=== PATIENT | female | born 1990 | race Caucasian/White ===

== ENCOUNTER 2018-06-20 15:14 | Outpatient (CLI) | payer SELFPAY ==
[~2018-06-20] VITALS: Ht 160 cm; Wt 60.5 kg
--- NOTE | 2018-06-20 16:51 | TRIAGE ---
OB Triage Datetime Report Generated by CPN: 06/20/2018 16:50 Datetime: 06/20/2018 15:51 Assessment Type: Triage Maternal Assessment Level of Consciousness: Fully Conscious DTR's/Clonus: DTRs 2+; No Clonus Headache: Denies Blurred Vision: No Respiratory Effort: Unlabored; Regular Rhythm; Equal Expansion Breath Sounds, Left: Clear and Equal Breath Sounds, Right: Clear and Equal Nausea/Vomiting: Denies RUQ Epigastric Pain: Denies Lower Extremities Edema: None Degree: None Upper Extremities Edema: None Degree: None Facial Edema: None Fall Risk Assessment History of Falling: (0) No Secondary Diagnosis: (0) No Ambulatory Aid: (0) Bedrest/Nurse Assist IV Therapy: (0) No Gait: (0) Normal/Bedrest/Immobile Mental Status: (0) Oriented to Own Ability Fall Score: 0 Fall Risk Score Definition: No Risk: No action required Datetime: 06/20/2018 15:49 Time of Arrival: 06/20/2018 15:03 EGA: 34.4 Arrived By: Ambulatory Arrived From: Home Chief Complaint: PT. HERE STATES SHE HAS NO PNC IN THIS COUNTRY Movement: Present Contractions: Denies/Absent Rupture of Membranes: Denies Vaginal Bleeding: None Vaginal Discharge: Denies Recent Sexual Intercouse: Denies Abdominal Trauma: Not Applicable Patient Complaints: None Time Provider Notified: 06/20/2018 15:53 Provider Notified: HADADIAN Initial Plan: NST/KATELIN/EFW Datetime: 06/20/2018 15:44 Labor Evaluation Monitor Mode: External Heart Rate Monitor Mode: External US
[2018-06-20 16:54] VITALS: Ht 160 cm; Wt 60.5 kg
[2018-06-20 16:56] VITALS: BP 111/60; PULSE 76; RESP 18
--- NOTE | 2018-06-20 17:03 | PN ---
Triage Information Date/Time Reason for visit: The patient recently moved to [facility], came to hospital for checking the baby Weeks of Gestation 34 weeks and 4 days by LMP and first trimester ultrasound which done [place] country /Para Diabetes: none Diabetes management: diet controlled Objective Vital Signs Date Temp Pulse Resp B/P (MAP) Pulse Ox O2 O2 Flow FiO2 Time Delivery Rate 06/20/18 98.0 76 18 111/60 Room Air 16:56 (77) Heart Rate: 140's Contractions: None Results/Medications Medications There is a twin viable intrauterine gestation. There is a breech presentation for both twins. The single placenta is posterior. There is no evidence for an abruption or placenta previa. Measurements were made in order to determine age. The results are as follows: TWIN A BPD = 6.52 cm HC = 24.17 cm AC = 22.64 cm FL = 5.12 cm EFW = 1019 g HR= 138 bpm TWIN B BPD = 5.92 cm HC = 22.78 cm AC = 22.34 cm FL = 4.82 cm EFW = 905 g HR= 142 bpm IMPRESSION: Single viable with TWIN A gestational age of approximately 26 weeks 5 days and TWIN B gestational age of approximately 25 weeks and 3 day(s) based on ultrasound measurements. The estimated date of delivery is 09/21/2018 - 09/30/2018. Disposition: Discharge Assessment/Plan 28 years old 2 para 1001 with single intrauterine at 34 weeks and 4 days with a RADHA of 07/28/2018 recently moved to [facility]. She presented to triage for checking the baby. She states good movement. She denies nausea, vomiting, shortness of breath, chest pain, headache, visual changes, vaginal bleeding or LOF. -FHR: No sign of metabolic acidosis- Category I -Contractions: None -Ultrasound performed: EFW 2231 g, amniotic fluid index 14.5 -Contractions: None -Symptoms and sign of labor, preeclampsia, kick count discussed wi th patient, she voiced understanding. All of her questions answered. -Patient was discharged home in stable condition with the appropriate discharge instructions provided. The address of few clinics that are close to her house given. I would like patient to have close follow-up with in clinic in 1-2 days or return to triage for worsening symptoms or any other urgent concerns. DIEGO BECERRA Jun 20, 2018 17:03
== END 2018-06-20 17:05 | disposition home or self-care (01) ==
LOC: OBT 15:14 → L-D 15:16 → OBT 17:05
PROVIDERS: ATTEND Obstetrics & Gynecology
DX: O30.043 Twin pregnancy, dichorionic/diamniotic, third trimester (principal); Z3A.34 34 weeks gestation of pregnancy
CPT/HCPCS: 76815; G0463

== ENCOUNTER 2018-07-17 17:21 | Outpatient (CLI) | payer MEDICAID ==
[~2018-07-17] VITALS: Ht 160 cm; Wt 60.9 kg
[2018-07-17 17:41] VITALS: Ht 160 cm; Wt 60.9 kg
[2018-07-17 17:42] VITALS: BP 106/57
[2018-07-17] MEDS ORDERED: PREN1TAB71 PO (17:46)
--- NOTE | 2018-07-17 19:54 | PN ---
Triage Information Date/Time Reason for visit: NST and biophysical profile for history of stillbirth at 40 weeks Weeks of Gestation 37 weeks and 5 days /Para 3 para 2000 Diabetes: none Hypertention: none Objective Vital Signs Date Temp Pulse Resp B/P (MAP) Pulse Ox O2 O2 Flow FiO2 Time Delivery Rate 07/17/18 97.6 106/57 17:42 (73) Heart Rate: 140's Contractions: None Disposition: Discharge Assessment/Plan 28 years old 3 para 2000 with history of stillbirth at 40 weeks in first at 37 weeks and 5 days referred to hospital for NST and biophysical profile. She states good movement. She denies nausea, vomiting, shortness of breath, chest pain, headache, visual changes, vaginal bleeding or LOF. -FHR: No sign of metabolic acidosis- Category I -Contractions: Occasional -Ultrasound performed: KATELIN 19.7. Biophysical profile 8 out of 8 -Symptoms and sign of labor, preeclampsia, kick count discussed with patient, she voiced understanding. All of her questions answered. -Patient was discharged home in stable condition with the appropriate discharge instructions provided. I would like patient to have close follow-up with her primary physician or outpatient clinic in 1-2 days or return to triage for worsening symptoms or any other urgent concerns. DIEGO BECERRA Jul 17, 2018 19:54
--- NOTE | 2018-07-17 20:11 | TRIAGE ---
OB Triage Datetime Report Generated by CPN: 07/17/2018 20:11 Datetime: 07/17/2018 19:33 Labor Evaluation Frequency: irregular Monitor Mode: External Duration (sec)2399: 40-90 Pattern: Normal: <= 5 Contractions in 10 Minutes Heart Rate FHR Baseline Rate: 135 Monitor Mode: External US Variability: Moderate 6-25 bpm Accelerations: 15X15 Decelerations: None Category: Category I Datetime: 07/17/2018 19:11 Stage of : OB Triage Assessment Type: Triage Maternal Assessment Level of Consciousness: Fully Conscious DTR's/Clonus: DTRs 2+; No Clonus Headache: Denies Blurred Vision: No Respiratory Effort: Unlabored; Regular Rhythm; Equal Expansion Breath Sounds, Left: Clear and Equal Breath Sounds, Right: Clear and Equal Nausea/Vomiting: Denies RUQ Epigastric Pain: Denies Lower Extremities Edema: None Degree: None Upper Extremities Edema: None Degree: None Facial Edema: None Temperature Route: Oral Fall Risk Assessment History of Falling: (0) No Secondary Diagnosis: (0) No Ambulatory Aid: (0) Bedrest/Nurse Assist IV Therapy: (0) No Gait: (0) Normal/Bedrest/Immobile Mental Status: (0) Oriented to Own Ability Fall Score: 0 Fall Risk Score Definition: No Risk: No action required Labor Evaluation Frequency: 2-5 Monitor Mode: External Duration (sec)2399: 40-80 Pattern: Normal: <= 5 Contractions in 10 Minutes Heart Rate FHR Baseline Rate: 135 Monitor Mode: External US Variability: Moderate 6-25 bpm Accelerations: 15X15 Decelerations: None Category: Category I Comments: Patient states she feels active movement. Pain Assessment Pain Scale: 0 Pain Presence: None/Denies Pain Type: N/A Datetime: 07/17/2018 18:19 Stage of : OB Triage Labor Evaluation Frequency: 0 Monitor Mode: External Pattern: Normal: <= 5 Contractions in 10 Minutes Resting Tone [place]: Relaxed Heart Rate FHR Baseline Rate: 135 Variability: Moderate 6-25 bpm Accelerations: 15X15 Decelerations: None Category: Category I Datetime: 07/17/2018 17:51 Stage of : OB Triage Assessment Type: Triage Maternal Assessment Level of Consciousness: Fully Conscious DTR's/Clonus: DTRs 2+; No Clonus Headache: Denies Blurred Vision: No Respiratory Effort: Unlabored; Regular Rhythm; Equal Expansion Breath Sounds, Left: Clear and Equal Breath Sounds, Right: Clear and Equal Nausea/Vomiting: Denies RUQ Epigastric Pain: Denies Lower Extremities Edema: None Degree: None Upper Extremities Edema: None Degree: None Facial Edema: None Temperature Route: Oral Fall Risk Assessment History of Falling: (0) No Secondary Diagnosis: (0) No Ambulatory Aid: (0) Bedrest/Nurse Assist IV Therapy: (0) No Gait: (0) Normal/Bedrest/Immobile Mental Status: (0) Oriented to Own Ability Fall Score: 0 Fall Risk Score Definition: No Risk: No action required Monitor Mode: External (Annotations: INITIAL PLACEMENT ) Monitor Mode: External US (Annotations: INITIAL PLACEMENT ) Pain Assessment Pain Scale: 0 Pain Presence: None/Denies Pain Type: N/A Datetime: 07/17/2018 17:48 Time of Arrival: 07/17/2018 17:12 EGA: 38.3 Arrived By: Ambulatory Arrived From: Dr. Valerio Chief Complaint: SENT FROM CLINIC FOR NST BPP HX OF STILLBIRTH Movement: Present Contractions: Denies/Absent Rupture of Membranes: Denies Vaginal Bleeding: None Vaginal Discharge: Denies Recent Sexual Intercouse: Denies Abdominal Trauma: Not Applicable Patient Complaints: Other Initial Plan: NST, BPP Datetime: 06/20/2018 16:58 Stage of : OB Triage Maternal Assessment Level of Consciousness: Fully Conscious Labor Evaluation Frequency: NONE Monitor Mode: External Resting Tone [place]: Relaxed Heart Rate FHR Baseline Rate: 125 Monitor Mode: External US Variability: Moderate 6-25 bpm Accelerations: 15X15 Decelerations: None Category: Category I Pain Assessment Pain Scale: 0 Pain Goal: 3 Vaginal Exam Membrane Status: Intact Vaginal Bleeding: None Datetime: 06/20/2018 15:51 Fall Score: 0 Fall Risk Score Definition: No Risk: No action required Datetime: 06/20/2018 15:49 EGA: 34.4
== END 2018-07-17 20:00 | disposition home or self-care (01) ==
LOC: OBT 17:21 → L-D 17:22 → OBT 20:00
PROVIDERS: ATTEND Obstetrics & Gynecology
DX: O62.9 Abnormality of forces of labor, unspecified (principal); Z3A.37 37 weeks gestation of pregnancy
CPT/HCPCS: 76818; Z7500; G0463

== ENCOUNTER 2018-07-24 18:15 | Inpatient (IN) | payer MEDICAID ==
[~2018-07-24] VITALS: Ht 160 cm; Wt 60.5 kg
[~2018-07-24 18:15] MED LIST: PREN1TAB71 PO
[2018-07-24] MEDS ORDERED: IBUPROFEN 600 MG TAB PO PRN (20:00)
[2018-07-24] MEDS ORDERED: LIDOCAINE 1% (MPF) 30 ML INJ INJ PRN (20:00)
[2018-07-24] MEDS ORDERED: BUTORPHANOL 2 MG INJ IV PRN (20:00)
[2018-07-24] MEDS ORDERED: OXYTOCIN 30 UNITS/LR 500 ML IV PRN (20:00)
[2018-07-24] MEDS ORDERED: METHYLERGONOVINE 0.2 MG INJ IM PRN (20:00)
[2018-07-24] MEDS ORDERED: OXYTOCIN 30 UNITS/LR 500 ML IV SCH (20:00)
[2018-07-24] MEDS ORDERED: MISOPROSTOL 200 MCG TAB PR PRN (20:00)
[2018-07-24] MEDS ORDERED: CARBOPROST 250 MCG INJ IM PRN (20:00)
[2018-07-24] MEDS ORDERED: AMPICILLIN 2 GM/NS (PMX) 100 ML IV ONE (20:00)
[2018-07-24 20:35] VITALS: Ht 160 cm; Wt 60.5 kg
[2018-07-24] MEDS: LACTATED RINGER'S 1,000 ML IV SCH ×2 (21:02→22:56)
[2018-07-24] MEDS: MISOPROSTOL 50 MCG CAPSULE PO SCH (21:34)
--- NOTE | 2018-07-24 22:16 | HP ---
Date/Time of Note Date/Time of Note DATE: 07/24/18 TIME: 22:11 OB - History Hx of Present Free Text/Dictation 28 years old with single intrauterine at 39 weeks and 3 days with RADHA of 07/28/2018 admitted for induction of labor due to history of stillbirth in first at 39 weeks. She states good movement. She denies nausea, vomiting, shortness of breath, chest pain, headache, visual changes, vaginal bleeding or LOF. Chief Complaint: Scheduled for induction of labor due to history of stillbirth at 39 weeks Estimated Due Date: Jul 28, 2018 : 3 Para: 2 Spontaneous : 0 Therapeutic : 0 Care: Good Care Ultrasounds: Other (Normal third trimester ultrasound. She was seen early in in [facility]) Obstetrical Complications: None Medical Complications: None Past Family/Social History * Past Medical, Surgical, Family and Obstetric Histories reviewed from chart. Blood Type: O+ Rubella: immune RPR/VDRL: Negative GBS Status: Positive HBsAG: Negative OB Admission Exam Vital Signs Vital Signs Blood pressure 116/70, pulse rate 72/minutes, respiratory rate 16/minutes, temperature 98.5 Physical Exam HEENT: WNL Heart: Rhythm Normal Lungs: Clear Abdomen: WNL Extremities: Normal Cervical Dilatation: Fingertip Effacement: 25% Station: -3 Membranes: Intact Heart Rate: 130's Accelerations: Accelerations Present Decelerations: No Decelerations Varibility: Moderate Contractions on Admission: >10 Minutes Apart Intensity: Mild Last 72 hours Lab Results CBC & BMP 07/24/18 21:23 OB Assessment/Plan Other plan: 28 years old 3 para 2000 with single intrauterine at 39 weeks and 3 days admitted for induction of labor due to history of stillbirth at 39 weeks - FHR: No sign of metabolic acidosis- Category I - Continuous EFM, toco - CBC, blood type and screen - Analgesia options with R/B/A discussed in detail with patient - Epidural per patient request - Cytotec for induction of labor per protocol - Please see the orders - O+/Rubella: Immune - GBS: Positive, ampicillin in active labor 2. Mild anemia; hemoglobin 10.4. Recommend continue vitamin and ferrous sulfate 325 mg twice daily for 3 months after delivery. Admission, procedures, expectations, risks and possible complications have been discussed in detail with the patient. Risk of vaginal delivery including but not limited to bleeding, infection, cervical laceration, placental retention, injury to fetus, blood transfusion, blood transfusion related infection, risk of anesthesia, adhesion, cervical laceration, episiotomy/laceration, possible delivery with risk of bleeding, infection, injury to other organs (bowel, bladder, ureter, vessels, nerves), injury to fetus, blood transfusion, blood transfusion related infection, risk of anesthesia, scar and hernia formation, needs for future , removal of uterus or any other indicated surgery discussed with the patient. She expressed understanding and repeats the risks. All of her questions were answered. She signed the informed consent. PHYSICIAN'S VERIFICATION OF INFORMED CONSENT The patient was counseled regarding the procedure, its indications, risks, potential complications and alternatives and any questions were answered. Consent was obtained. PLANNED PROCEDURE/TREATMENT: Vaginal delivery, episiotomy, repair of laceration possible delivery DIEGO BECERRA Jul 24, 2018 22:16
--- NOTE | 2018-07-24 22:18 | TRIAGE ---
OB Triage Datetime Report Generated by CPN: 07/24/2018 22:18 Datetime: 07/24/2018 20:58 Stage of : Labor Datetime: 07/24/2018 20:28 Assessment Type: Admission Assessment Vaginal Bleeding: None Maternal Assessment Level of Consciousness: Fully Conscious DTR's/Clonus: DTRs 2+; No Clonus Headache: Denies Blurred Vision: No Respiratory Effort: Unlabored; Regular Rhythm; Equal Expansion Breath Sounds, Left: Clear and Equal Breath Sounds, Right: Clear and Equal Nausea/Vomiting: Denies RUQ Epigastric Pain: Denies Lower Extremities Edema: None Upper Extremities Edema: None Facial Edema: None Fall Risk Assessment History of Falling: (0) No Secondary Diagnosis: (0) No Ambulatory Aid: (0) Bedrest/Nurse Assist IV Therapy: (0) No Gait: (0) Normal/Bedrest/Immobile Mental Status: (0) Oriented to Own Ability Fall Score: 0 Fall Risk Score Definition: No Risk: No action required Pain Assessment Pain Scale: 0 Pain Presence: None/Denies Pain Type: N/A Membrane Status: Intact Datetime: 07/24/2018 20:27 Time of Arrival: 07/24/2018 20:27 EGA: 39.3 Arrived By: Ambulatory Arrived From: Dr. Office Datetime: 07/24/2018 20:00 Stage of : OB Triage Labor Evaluation Frequency: IRRITABILITY Monitor Mode: External Duration (sec)2399: 30 Quality: Mild Pattern: Normal: <= 5 Contractions in 10 Minutes Resting Tone [place]: Relaxed Heart Rate FHR Baseline Rate: 135 Monitor Mode: External US Variability: Moderate 6-25 bpm Accelerations: 15X15 Decelerations: None Category: Category I Datetime: 07/24/2018 19:15 Stage of : OB Triage Maternal Assessment Level of Consciousness: Fully Conscious DTR's/Clonus: DTRs 2+; No Clonus Headache: Denies Blurred Vision: No Respiratory Effort: Unlabored; Regular Rhythm; Equal Expansion Breath Sounds, Left: Clear and Equal Breath Sounds, Right: Clear and Equal Nausea/Vomiting: Denies RUQ Epigastric Pain: Denies Lower Extremities Edema: None Degree: None Upper Extremities Edema: None Degree: None Facial Edema: None Temperature Route: Oral Fall Risk Assessment History of Falling: (0) No Secondary Diagnosis: (0) No Ambulatory Aid: (0) Bedrest/Nurse Assist IV Therapy: (0) No Gait: (0) Normal/Bedrest/Immobile Mental Status: (0) Oriented to Own Ability Fall Score: 0 Fall Risk Score Definition: No Risk: No action required Pain Assessment Pain Scale: 0 Pain Presence: None/Denies Pain Type: N/A Vaginal Exam Dilatation (cms): 1.0 Effacement (%): 50 Station: -2 Exam By: David GU Membrane Status: Intact Vaginal Bleeding: None Cervix, Consistency: Soft Datetime: 07/24/2018 19:10 Time of Arrival: 07/24/2018 18:13 EGA: 39.3 Arrived By: Ambulatory Arrived From: Home Chief Complaint: referred from office for nst/bpp, ve Movement: Present Contractions: Denies/Absent Rupture of Membranes: Denies Vaginal Bleeding: None Vaginal Discharge: Denies Recent Sexual Intercouse: Denies Abdominal Trauma: Not Applicable Patient Complaints: None Additional Patient Complaints: ID #[id number] plan of care explained, questions answered to pt satisfacti on Time Provider Notified: 07/24/2018 19:27 Provider Notified: DR. BECERRA Initial Plan: EFM, BPP, SVE, CALL OB Datetime: 07/17/2018 19:11 Fall Score: 0 Fall Risk Score Definition: No Risk: No action required Datetime: 07/17/2018 17:51 Fall Score: 0 Fall Risk Score Definition: No Risk: No action required Datetime: 07/17/2018 17:48 EGA: 38.3 Datetime: 06/20/2018 15:51 Fall Score: 0 Fall Risk Score Definition: No Risk: No action required Datetime: 06/20/2018 15:49 EGA: 34.4
[2018-07-25] MEDS: MISOPROSTOL 50 MCG CAPSULE PO SCH (01:00)
[2018-07-25] MEDS ORDERED: AMPICILLIN 2 GM/NS (PMX) 100 ML IV ONE (02:00)
--- NOTE | 2018-07-25 04:20 | PREAC ---
Date/Time of Note Date/Time of Note DATE: 07/25/18 TIME: Anesthesia Eval and Record Evaluation Time Pre-Procedure Interview DATE: 07/25/18 TIME: : Age 28 Sex female NPO: 8 hrs Preoperative diagnosis 39 weeks Planned procedure labor epidural Past Medical History Past Medical History: None Surgery & Anesthesia Issues No known issue Meds Anticoagulation: No Beta Deshaun within 24 hr: No Reason Beta Deshaun not given: Pt. not on B-Deshaun Reported Medications Vit No.130/Iron/FA ( Tablet) 1 Each Tablet, 1 EACH PO 07/17/18 Current Medications Lactated Ringer's 1,000 ml @ 125 mls/hr Q8H IV Last administered on 07/24/18at 22:56; Admin Dose 125 MLS/HR; Start 07/24/18 at 19:47 Butorphanol Tartrate (Stadol) 2 mg Q2H PRN IV .PAIN Last administered on 07/25/18at 01:38; Admin Dose 2 MG; Start 07/24/18 at 20:00 Lidocaine (Xylocaine 1% (Mpf)) 30 ml ONCE PRN INJ .EPISIOTOMY; Start 07/24/18 at 20:00 Oxytocin/Lactated Ringer's 500 ml @ 500 mls/hr ONCE POST IV ; Start 07/24/18 at 20:00 Oxytocin/Lactated Ringer's 500 ml @ 125 mls/hr POST IV ; Start 07/24/18 at 20:00 Ibuprofen (Motrin) 600 mg ONCE PRN PO .PAIN 1-5; Start 07/24/18 at 20:00 Oxytocin/Lactated Ringer's 500 ml @ 0 mls/hr ONCE PRN IV .VAGINAL BLEEDING; Start 07/24/18 at 20:00 Methylergonovine Maleate (Methergine) 0.2 mg ONCE PRN IM .VAGINAL BLEEDING; Start 07/24/18 at 20:00 Carboprost Tromethamine (Hemabate) 250 mcg ONCE PRN IM .VAGINAL BLEEDING; Start 07/24/18 at 20:00 Misoprostol (Cytotec) 1,[address] .VAGINAL BLEEDING; Start 07/24/18 at 20:00 Misoprostol (Cytotec 50 Mcg Capsule) 50 mcg Q4 PO Last administered on 07/24/18at 21:34; Admin Dose 50 MCG; Start 07/24/18 at 21:00 Ampicillin 50 ml @ 100 mls/hr Q4H IV ; Start 07/25/18 at 06:00 Meds reviewed: Yes Allergies Coded Allergies: No Known Allergy (Unverified , 06/20/18) Allergies Reviewed: Yes Labs/Studies Labs Reviewed: Reviewed by anesthesiologist Result Diagram: 07/24/18 2123 Laboratory Tests 07/24/18 21:23 Blood Bank Test 07/24/18 21:23 Antibody Screen NEGATIVE Blood Type O POSITIVE Rh Immune Globulin Candidate NO test: Positive Pre-procedure Exam Airway: Adequate mouth opening, Adequate thyromental dist Mallampati: Mallampati II Teeth: Normal Lung: Normal Heart: Normal ASA Physical Status ASA physical status: 2 Emergency: None Planned Anesthetic Neuraxial: Epidural Planned Pain Management Parenteral pain med Pre-operative Attestations Prior to commencing anesthesia and surgery, the patient was re-evaluated, there was verification of: *The patient's identity *The results of appropriate recent lab work and preoperative vital signs *The above evaluation not changing prior to induction *Anesthetic plan, risk benefits, alternative and complications discussed with patient/family; questions answered; patient/family understands, accepts and wishes to proceed. KATIE MITCHELL Jul 25, 2018 04:20
[2018-07-25] MEDS ORDERED: FENTAnyl 2MCG/ML-ROPIV 0.2% 100 ML ONE (04:22)
[2018-07-25] MEDS ORDERED: FENTAnyl 2MCG/ML-ROPIV 0.2% 100 ML BAG EPI SCH (04:30)
[2018-07-25] MEDS ORDERED: NALOXONE (0.4 MG/ML) INJ IV PRN (04:30)
[2018-07-25] MEDS: OXYTOCIN 30 UNITS/LR 500 ML IV SCH ×2 (05:21→09:32)
[2018-07-25] MEDS ORDERED: AMPICILLIN 1 GM/NS (PMX) 50 ML IV SCH ×2 (06:00)
--- NOTE | 2018-07-25 06:54 | LDN ---
Date/Time of Note Date/Time of Note DATE: 07/25/18 TIME: 06:51 Delivery Summary 28 years old with single intrauterine at 39 weeks and 4 days delivered a viable female over median episiotomy at 04:46. Nose and mouth suctioned. Rest of body delivered. Cord clamped and cut after stopping pulsation. Placenta delivered intact and spontaneously with three-vessel cord. Episiotomy repaired with 2-0 Vicryl. Patient tolerated procedure well. Weight 3040 g Height 19 inches 8 at 1 minutes and 9 at 5 minutes EBL 150 mL Weeks of Gestation 39 weeks and 4 days Placenta Delivered: Spontaneously Meconium: none Episiotomy: Yes (Median) Indication for episiotomy Facilitate vaginal delivery Anesthesia type: Local Estimated blood loss: 150 Sponge & Needle done & correct: Yes All needle counts correct: Yes Any foreign bodies felt in the: No Delivery Information Sex Infant Sex: female Apgars 1 Minute: 8 5 Minute: 9 10 Minute: 10 Suctioning Nose & mouth suctioned at harry: Yes Umbilical Cord Umbilical cord with: 3 Vessels Cord presentations: no nuchal cord Cord Blood was obtained: Yes Mother & Baby Disposition Disposition Mom & Baby to Maternity; Good: Yes DIEGO BECERRA Jul 25, 2018 06:54
--- NOTE | 2018-07-25 08:20 | PAC ---
Date/Time of Note Date/Time of Note DATE: 07/25/18 TIME: 08:19 Post-Anesthesia Notes Post-Anesthesia Note Last documented vital signs temp 98.1 bp 112/67 p 78 Activity: WNL Respiratory function: WNL Cardiovascular function: WNL Mental status: Baseline Pain reasonably controlled: Yes Hydration appropriate: Yes Nausea/Vomiting absent: Yes KATIE MITCHELL Jul 25, 2018 08:19
[2018-07-25 11:00] VITALS: BP 111/69; PULSE 59; RESP 16
[2018-07-25] MEDS ORDERED: LACTATED RINGER'S 1,000 ML IV* SCH (12:05)
[2018-07-25] MEDS ORDERED: DEXTROSE 5%-LR 1,000 ML IV SCH (12:05)
[2018-07-25] MEDS ORDERED: METHYLERGONOVINE 0.2 MG INJ IM PRN (12:30)
[2018-07-25] MEDS ORDERED: OXYTOCIN 30 UNITS/LR 500 ML IV PRN (12:30)
[2018-07-25] MEDS ORDERED: DIBUCAINE 1% 30 GM OINT TOP PRN (12:30)
[2018-07-25] MEDS ORDERED: LANOLIN HPA 1 PKT TOP PRN (12:30)
[2018-07-25] MEDS ORDERED: SENNA/DOCUSATE NA (8.6MG/50MG) TAB PO PRN (12:30)
[2018-07-25] MEDS ORDERED: BENZOCAINE 20% 56 ML SPRAY TOP PRN (12:30)
[2018-07-25] MEDS ORDERED: ACETAMINOPHEN 325 MG TAB PO PRN (12:30)
[2018-07-25] MEDS ORDERED: CARBOPROST 250 MCG INJ IM PRN (12:30)
[2018-07-25] MEDS ORDERED: ZOLPIDEM 5 MG TAB PO PRN (12:30)
[2018-07-25] MEDS ORDERED: MISOPROSTOL 200 MCG TAB PR PRN (12:30)
[2018-07-25] MEDS ORDERED: ONDANSETRON 4 MG INJ IV PRN (12:30)
[2018-07-25] MEDS ORDERED: DIPHENHYDRAMINE 50 MG INJ IV PRN (12:30)
[2018-07-25] MEDS ORDERED: MAGNESIUM HYDROXIDE 30ML CUP PO PRN (12:30)
[2018-07-25] MEDS ORDERED: WITCH HAZEL/GLYCERIN PAD PR PRN (12:30)
[2018-07-25] MEDS: IBUPROFEN 600 MG TAB PO SCH ×3 (13:03→23:36)
[2018-07-25 15:30] VITALS: BP 101/59; PULSE 64; RESP 18
[2018-07-25 19:57] VITALS: BP 121/62; PULSE 75; RESP 20
[2018-07-26 04:50] VITALS: BP 101/54; PULSE 72
[2018-07-26] MEDS: IBUPROFEN 600 MG TAB PO SCH ×3 (05:21→17:23)
[2018-07-26 07:40] VITALS: BP 108/55; PULSE 72; RESP 17
[2018-07-26] MEDS: OXYCODONE/ASPIRIN (4.88/325) TAB PO PRN ×2 (10:27→16:14)
--- NOTE | 2018-07-26 15:38 | PN ---
Date/Time of Note Date/Time of Note DATE: 07/26/18 TIME: 15:32 OB Subjective Subjective Subjective Breast feeding,. Ambulating, Decreased vaginal bleeding, Denies any pain in le gs. reports difficulty in breast feeding. OB Objective Objective Objective GA: A&O, NAD. Abdomen: soft, non tender, Breasts" no evidence of mastitis and fissure Extermities: no calf tenderness, no click, no edema VS - Last 72 Hours, by Label Date Temp Pulse Resp B/P (MAP) Pulse Ox O2 O2 Flow FiO2 Time Delivery Rate 07/26/18 97.7 72 17 108/55 Room Air 07:40 (72) 07/26/18 98.1 72 101/54 Room Air 04:50 (70) 07/25/18 98.4 75 20 121/62 Room Air 19:57 (81) 07/25/18 99.1 64 18 101/59 Room Air 15:30 (73) 07/25/18 98.6 59 16 111/69 Room Air 11:00 (83) Laboratory Tests Test 07/26/18 04:36 07/26/18 08:06 White Blood Count 8.6 Red Blood Count 3.60 L Hemoglobin 9.4 L Hematocrit 30.3 L Mean Corpuscular Volume 84.2 Mean Corpuscular Hemoglobin 26.1 L Mean Corpuscular Hemoglobin Concent 31.0 L Red Cell Distribution Width 14.7 H Platelet Count 263 Mean Platelet Volume 9.7 Immature Granulocytes % 0.800 H Neutrophils % 55.5 Lymphocytes % 35.3 Monocytes % 6.8 Eosinophils % 1.3 Basophils % 0.3 Nucleated Red Blood Cells % 0.0 Immature Granulocytes # 0.070 H Neutrophils # 4.8 Lymphocytes # 3.0 H Monocytes # 0.6 Eosinophils # 0.1 Basophils # 0.0 Nucleated Red Blood Cells # 0.0 Lab Scanned Report REFERENCE LAB OB Assessment/Plan Other Assessment: PPD #1 s/p Difficulty breast feeding. Discussed to see cognos consultant Anemia, post partu, asymptomatic Routine post care Anticipate DC home tomorrow HUMBERTO MARTIN MD Jul 26, 2018 15:38
[2018-07-26 15:50] VITALS: BP 111/55; PULSE 73; RESP 16
[2018-07-26 20:00] VITALS: BP 103/52; PULSE 76; RESP 18
[2018-07-27] MEDS: IBUPROFEN 600 MG TAB PO SCH ×3 (00:42→11:39)
[2018-07-27 04:21] VITALS: BP 99/57; PULSE 79; RESP 18
[2018-07-27 08:00] VITALS: BP 117/63; PULSE 77; RESP 18
[2018-07-27] MEDS ORDERED: DIPHTH/TET/ACEL PERTUSS (ADULT) 0.5 ML VIAL IM* ONE (09:00)
[2018-07-27] MEDS ORDERED: MEASLES,MUMPS,RUBELLA VACCINE INJ SC* ONE (09:00)
[2018-07-27 16:30] VITALS: BP 116/60; PULSE 76; RESP 18
--- NOTE | 2018-07-27 16:44 | DS ---
Date/Time of Note Date/Time of Note DATE: 07/27/18 TIME: 16:42 Obstetrical Discharge Record Final Diagnosis Final Diagnosis: Term delivered Vaginal Delivery Obstetrical Delivery: Spontaneous, Episiotomy, Repaired Complications Augmentation: No Induction: No Rupture of Membranes: No Condition on Discharge Physical Assessment Last Vitals: vss afebrile Voiding: Yes Bowel Movement: No Breast: Soft, non-tender Fundus: Firm Abdomen and Incision: n/a Episiotomy: healing ok Calf Tenderness: No Patient Condition: Stable JARETH GOFF MD Jul 27, 2018 16:43
--- NOTE | 2018-07-27 16:45 | PD.PPDC ---
PRODUCTION HAND Discharge Instruction Diagnosis [id number] Final Diagnosis: Awpec4r s/p Condition [id number] Patient Condition: Uhyxx0j Stable Diet [id number] Diet: Sfpab9r Resume Regular Diet Activity/Restrictions [id number] Activity: Cwegh2h May Shower [id number] Restrictions: Yihnp7s No Exercising No Lifting No Driving Minimize Walking Minimize Stair-climbing No Sexual Activity Nothing in the Vagina No [place] No Tampons, douche Follow-up Follow-up with Physician: 2, Week/Weeks Return to clinic for [id number] [employer] Instructions: [id number] Fever greater than 101 Chills Worsening abdominal pain Excessive Vaginal Bleeding More than 2 pads per hour Unable to tolerate diet [id number] OB Instructions: Hfyww2u Breast Tenderness Depression Blurried Vision Headache JARETH GOFF MD Jul 27, 2018 16:45
[2018-07-30 17:38] VITALS: BP 159/74; PULSE 79; RESP 18
== END 2018-07-27 18:41 | disposition home or self-care (01) | DRG 807 ==
LOC: OBT 18:15 → L-D 18:17 → OBT 19:30 → L-D 20:58 → MS1 07-25 10:59
PROVIDERS: ADMIT Obstetrics & Gynecology; ATTEND Obstetrics & Gynecology
PROC: 10E0XZZ Delivery of Products of Conception, External Approach (ICD-10-PCS; principal; 2018-07-25)
PROC: 0W8NXZZ Division of Female Perineum, External Approach (ICD-10-PCS; 2018-07-25)
DX: O99.02 Anemia complicating childbirth (principal); Z37.0 Single live birth; D64.9 Anemia, unspecified; O99.824 Streptococcus B carrier state complicating childbirth; O92.70 Unspecified disorders of lactation; Z3A.39 39 weeks gestation of pregnancy
CPT/HCPCS: 76818; 85025; 85610; 85730; 86592; 86850; 86900; 86901; 87340; 90715; 99464; G0463; J0290; J0595; J2590; J3010; J7120; J7121